=== PATIENT | female | born 1965 | race Caucasian/White ===

== ENCOUNTER 2020-05-16 19:30 | Inpatient (IN) | payer OTHER ==
[2020-05-16] MEDS ORDERED: HYDROmorphone 1 MG/ML Syringe IVPUSH ONE ×2 (19:34→22:03)
[2020-05-16] MEDS ORDERED: Ketorolac 30 MG/ML SDV IVPUSH ONE (19:34)
[2020-05-16] MEDS ORDERED: diphenhydrAMINE 50 MG/ML SDV IVPUSH ONE (19:35)
--- NOTE | 2020-05-16 19:41 | EDM.PDOC ---
ED HPI GENERAL MEDICAL PROBLEM - General Chief Complaint: Trauma Stated Complaint: RT SIDE INJURY Time Seen by Provider: 05/16/20 19:36 Source of Information: Reports: Patient History Limitations: Reports: No Limitations - History of Present Illness INITIAL COMMENTS - FREE TEXT/NARRATIVE: 55 yo female was trying to stop a lift that was rolling down a hill by putting a log under the tire when she tripped and it struck her. She has pain to the R side of her chest and says she can feel the ribs moving around on that side. Here via private vehicle. Lives in [place]. No sign of ETOH involvement. Onset: Today, Sudden Onset Date: 05/16/20 Onset Time: 18:40 Duration: Minutes: Location: Reports: Chest (R side) Quality: Reports: Sharp Severity: Severe Improves with: Reports: Rest Worsens with: Reports: Movement Context: Reports: Trauma Associated Symptoms: Reports: No Other Symptoms Treatments RESPIRATORY TECH: Reports: Other (see below) (none) Review of Systems - Review of Systems Review Of Systems: See Below Constitutional: Reports: No Symptoms Eyes: Reports: No Symptoms Ears: Reports: No Symptoms Nose: Reports: No Symptoms Mouth/Throat: Reports: No Symptoms Respiratory: Reports: Pleuritic Chest Pain (R side) Cardiovascular: Reports: No Symptoms GI/Abdominal: Reports: No Symptoms. Denies: Nausea Genitourinary: Reports: No Symptoms Musculoskeletal: Reports: No Symptoms Skin: Reports: Wound (abrasion R side of caodaism area) Neurological: Reports: No Symptoms. Denies: Headache ED EXAM, GENERAL - Physical Exam Exam: See Below Exam Limited By: No Limitations General Appearance: Alert, WD/WN, Mild Distress Eye Exam: Bilateral Eye: Normal Inspection Ears: Normal External Exam, Normal Canal, Hearing Grossly Normal, Normal TMs Ear Exam: Bilateral Ear: Auricle Normal, Canal Normal Nose: Normal Inspection, No Blood Throat/Mouth: Normal Inspection, Normal Lips, Normal Oropharynx, Normal Voice, No Airway Compromise Head: Atraumatic, Normocephalic Neck: Normal Inspection, Supple, Non-Tender Respiratory/Chest: No Respiratory Distress, Lungs Clear, Normal Breath Sounds, Other (R chest wall tender, ribs visibly move in with inspiration. Paradoxical movement.). No: Chest Non-Tender Cardiovascular: Regular Rate, Rhythm, No Edema GI/Abdominal: Normal Bowel Sounds, Soft, Non-Tender, No Distention Course - Vital Signs Text/Narrative:: Dr. Villarreal called @ Last Recorded V/S: Last Vital Signs Temp 37.1 C 05/16/20 19:43 Pulse 82 05/16/20 19:43 Resp 20 05/16/20 19:43 BP 93/52 L 05/16/20 19:43 Pulse Ox 99 05/16/20 19:43 - Orders/Labs/Meds Orders: Active Orders 24 hr Category Date Time Status Cardiac Monitoring [RC] .As Directed Care 05/16/20 19:35 Active UA W/MICROSCOPIC [URIN] Stat Lab 05/16/20 19:34 Ordered Iopamidol [Isovue-300 (61%)] Med 05/16/20 20:00 Active 100 ml IV . DIRECTED Lactated Ringers [Ringers, Lactated] 1,000 ml Med 05/16/20 19:45 Active IV ASDIRECTED Sodium Chloride 0.9% [Normal Saline] 80 ml Med 05/16/20 20:00 Active IV ASDIRECTED Medication Orders Lactated Ringer's (Ringers, Lactated) 1,000 mls @ 500 mls/hr IV ASDIRECTED MADDISON Sodium Chloride (Normal Saline) 80 mls @ 3.5 mls/sec IV ASDIRECTED MADDISON Iopamidol (Isovue-300 (61%)) 100 ml IV . DIRECTED MADDISON Labs: Laboratory Tests 05/16/20 05/16/20 Range/Units 19:42 19:42 WBC 5.8 (4.5-11.0) K/uL RBC 4.89 (3.30-5.50) M/uL Hgb 13.7 (12.0-15.0) g/dL Hct 41.8 (36.0-48.0) % MCV 86 (80-98) fL MCH 28 (27-31) pg MCHC 33 (32-36) % Plt Count 310 (150-400) K/uL Sodium 141 (140-148) mmol/L Potassium 2.8 L* (3.6-5.2) mmol/L Chloride 102 (100-108) mmol/L Carbon Dioxide 31 (21-32) mmol/L Anion Gap 10.8 (5.0-14.0) mmol/L BUN 16 (7-18) mg/dL Creatinine 0.9 (0.6-1.0) mg/dL Est Cr Clr Drug Dosing TNP Estimated GFR (MDRD) > 60 (>60) Glucose 116 H (74-106) mg/dL Calcium 8.7 (8.5-10.1) mg/dL Meds: Medications Generic Name Dose Route Start Last Admin Trade Name Freq PRN Reason Stop Dose Admin Lactated Ringer's 1,000 mls @ 500 mls/hr 05/16/20 19:45 Ringers, Lactated IV ASDIRECTED MADDISON Sodium Chloride 80 mls @ 3.5 mls/sec 05/16/20 20:00 Normal Saline IV ASDIRECTED MADDISON Iopamidol 100 ml 05/16/20 20:00 Isovue-300 (61%) IV . DIRECTED MADDISON Discontinued Medications Generic Name Dose Route Start Last Admin Trade Name Freq PRN Reason Stop Dose Admin Diphenhydramine HCl 50 mg 05/16/20 19:35 Benadryl IVPUSH 05/16/20 19:36 ONETIME ONE Hydromorphone HCl 1 mg 05/16/20 19:34 Dilaudid IVPUSH 05/16/20 19:35 ONETIME ONE Ketorolac Tromethamine 30 mg 05/16/20 19:34 Toradol IVPUSH 05/16/20 19:35 ONETIME ONE Sodium Chloride 10 ml 05/16/20 19:57 Saline Flush FLUSH 05/16/20 19:58 ONETIME ONE - Radiology Interpretation Free Text/Narrative:: CT chest/abdomen- FINDINGS: Chest: Thyroid appears normal. Aorta is non aneurysmal. No mediastinal hemorrhage. No pericardial or pleural effusion. No pathologic adenopathy. No pneumothorax. Lung parenchyma is clear other than some patchy contusion in the posterior right lower lobe associated with the mildly displaced and slightly complex posterior 9th and 10th rib fractures. Subtle 11th rib fracture without significant displacement is not contribute to contusion. Subtle acute nondisplaced anterior right 4th through 8th rib buckle fractures. No left-sided rib fractures are identified. Spine is intact. - Abdomen and pelvis: The cyst is segment 3 left liver. Couple of tiny cysts in the right liver are too small to accurately characterize. No solid visceral injury in the peritoneum or retroperitoneum. Bowel appears normal. No air or fluid in the peritoneum. Diverticula of the colon. No inflammation. No bone finding of significance. IMPRESSION: Multiple posterior and anterior right rib fractures. Minor contusion subpleural posterior right lower lobe. No pneumothorax. Please note that all CT scans at this facility use dose modulation, iterative reconstruction, and/or weight-based dosing when appropriate to reduce radiation dose to as low as reasonably achievable. Dictated by Kane Orosco MD @ May 16 2020 8:45PM (Electronic Signature) CT Results Date: 05/16/20 CT Results Time: 20:47 Departure - Departure Time of Disposition: 21:00 Disposition: Admitted As Inpatient 66 Condition: Fair Clinical Impression: Flail chest Qualifiers: Encounter type: initial encounter Fracture type: closed Qualified Code(s): S22.5XXA - Flail chest, initial encounter for closed fracture Multiple rib fractures Qualifiers: Encounter type: initial encounter Fracture type: closed Laterality: right Qualified Code(s): S22.41XA - Multiple fractures of ribs, right side, initial encounter for closed fracture - Discharge Information *PRESCRIPTION DRUG MONITORING PROGRAM REVIEWED*: No *COPY OF PRESCRIPTION DRUG MONITORING REPORT IN PATIENT JAMES: No Referrals: PCP,None [Primary Care Provider] - Forms: ED Department Discharge Sepsis Event Note (ED) - Focused Exam Vital Signs: Vital Signs Temp Pulse Resp BP Pulse Ox 05/16/20 19:43 37.1 C 82 20 93/52 L 99 - My Orders Last 24 Hours: My Active Orders 05/16/20 19:34 UA W/MICROSCOPIC [URIN] Stat 05/16/20 19:35 Cardiac Monitoring [RC] .As Directed 05/16/20 19:45 Lactated Ringers [Ringers, Lactated] 1,000 ml IV ASDIRECTED 05/16/20 20:00 Iopamidol [Isovue-300 (61%)] 100 ml IV . DIRECTED Sodium Chloride 0.9% [Normal Saline] 80 ml IV ASDIRECTED - Assessment/Plan Last 24 Hours: My Active Orders 05/16/20 19:34 UA W/MICROSCOPIC [URIN] Stat 05/16/20 19:35 Cardiac Monitoring [RC] .As Directed 05/16/20 19:45 Lactated Ringers [Ringers, Lactated] 1,000 ml IV ASDIRECTED 05/16/20 20:00 Iopamidol [Isovue-300 (61%)] 100 ml IV . DIRECTED Sodium Chloride 0.9% [Normal Saline] 80 ml IV ASDIRECTED
[2020-05-16] MEDS ORDERED: Lactated Ringers 1,000 ML IV SCH (19:45)
[2020-05-16] MEDS ORDERED: Sodium Chloride 0.9% 10 ML Syringe FLUSH ONE (19:57)
[2020-05-16] MEDS ORDERED: Sodium Chloride 0.9% 80 ML IV SCH (20:00)
[2020-05-16] MEDS ORDERED: Iopamidol 612 MG/ML 100 ML Bottle IV SCH (20:00)
--- NOTE | 2020-05-16 20:47 | CRLCT ---
INDICATION: Chest trauma. COMPARISON: None. TECHNIQUE: 100 mL Isovue-300 IV contrast. FINDINGS: Chest: Thyroid appears normal. Aorta is non aneurysmal. No mediastinal hemorrhage. No pericardial or pleural effusion. No pathologic adenopathy. No pneumothorax. Lung parenchyma is clear other than some patchy contusion in the posterior right lower lobe associated with the mildly displaced and slightly complex posterior 9th and 10th rib fractures. Subtle 11th rib fracture without significant displacement is not contribute to contusion. Subtle acute nondisplaced anterior right 4th through 8th rib buckle fractures. No left-sided rib fractures are identified. Spine is intact. - Abdomen and pelvis: The cyst is segment 3 left liver. Couple of tiny cysts in the right liver are too small to accurately characterize. No solid visceral injury in the peritoneum or retroperitoneum. Bowel appears normal. No air or fluid in the peritoneum. Diverticula of the colon. No inflammation. No bone finding of significance. IMPRESSION: Multiple posterior and anterior right rib fractures. Minor contusion subpleural posterior right lower lobe. No pneumothorax. Please note that all CT scans at this facility use dose modulation, iterative reconstruction, and/or weight-based dosing when appropriate to reduce radiation dose to as low as reasonably achievable. Dictated by Kane Orosco MD @ May 16 2020 8:45PM Signed by Dr. Kane Orosco @ May 16 2020 8:45PM
[2020-05-16] MEDS ORDERED: Scopolamine 1.5 MG Transdermal Patch TRDERM PRN (22:13)
[2020-05-16] MEDS ORDERED: diphenhydrAMINE 50 MG/ML SDV IVPUSH PRN ×2 (22:13)
[2020-05-16] MEDS ORDERED: Nicotine 21 MG/24 Hr Patch TRDERM PRN (22:13)
[2020-05-16] MEDS ORDERED: Ondansetron 4 MG/2 ML SDV IVPUSH PRN (22:13)
[2020-05-16] MEDS ORDERED: Promethazine 25 MG in Sodium Chloride 0.9% 50 ML IV PRN (22:13)
[2020-05-16] MEDS ORDERED: Promethazine 12.5 MG in Sodium Chloride 0.9% 50 ML IV PRN (22:13)
[2020-05-16] MEDS ORDERED: fentaNYL 100 MCG/2 ML SDV IVPUSH PRN ×3 (22:13)
[2020-05-16] MEDS ORDERED: Morphine 4 MG/ML Syringe IVPUSH PRN ×3 (22:13)
[2020-05-16] MEDS ORDERED: Ondansetron 4 MG Tab.DIS PO PRN (22:13)
[2020-05-16] MEDS ORDERED: diphenhydrAMINE 25 MG Cap PO PRN (22:13)
[2020-05-16] MEDS: Sodium Chloride 0.9% 1,000 ML IV SCH (23:50)
[2020-05-16] MEDS: Potassium Chloride 20 MEQ in Premix Bag 1 BAG IV SCH (23:57)
[2020-05-17] MEDS ORDERED: Potassium Chloride 20 MEQ in Premix Bag 3 BAG IV SCH (00:01)
[2020-05-17] MEDS: HYDROmorphone 0.5 MG/0.5 ML Syringe IVPUSH PRN ×5 (00:21→11:08)
[2020-05-17] MEDS: Potassium Chloride 20 MEQ in Premix Bag 1 BAG IV SCH ×2 (01:56→03:59)
--- NOTE | 2020-05-17 05:46 | CRLCR ---
Indication: Lung contusion, follow-up. Technique: Chest 2 views Comparison: Chest CT 05/16/2020 Findings/Impression: Cardiovascular and mediastinum: Heart size and vasculature are normal in caliber and appearance. Mediastinum is within normal limits. Lungs and pleural spaces: No definite pneumothorax. Mild patchy opacities lower lungs consistent with minimal atelectasis/contusion. Bones and soft tissues: Patient`s known right-sided rib fractures better seen on the recent chest CT. Dictated by Mehul Chowdary MD @ May 17 2020 5:42AM Signed by Dr. Mehul Chowdary @ May 17 2020 5:45AM
[2020-05-17] MEDS: Sodium Chloride 0.9% 1,000 ML IV SCH (07:28)
[2020-05-17] MEDS ORDERED: HYDROmorphone 1 MG/ML Syringe IV PRN (07:38)
--- NOTE | 2020-05-17 10:22 | CONS ---
DATE OF SERVICE: 05/17/2020 REFERRING PHYSICIAN: CONSULTING PHYSICIAN: Junito Villarreal MD Consult from Dr. Gerber. REASON FOR CONSULTATION: Trauma. HISTORY OF PRESENT ILLNESS: This is a 55-year-old female who had a mild crush injury in the last several hours. The patient did not drink alcohol. She is not a smoker. CT scan which showed some rib fractures and a mild lung contusion. SOCIAL HISTORY: Nonsmoker. FAMILY HISTORY: Noncontributory. REVIEW OF SYSTEMS: GENERAL: Appropriate for condition. ENT: No reported trauma. RESPIRATORY: Right-sided chest pain. CARDIOVASCULAR: No cardiac chest pain. GASTROINTESTINAL: No nausea. GENITOURINARY: No dysuria. MUSCULOSKELETAL: Some musculoskeletal pain, right side. SKIN: No specific injuries. NEUROLOGICAL: No symptoms. PHYSICAL EXAMINATION: VITAL SIGNS: Temperature 97.3, blood pressure 126/56, respirations 10, 94% on room air. GENERAL: The patient is appropriate for condition. HEENT: Pupils are equal. NECK: Supple. LUNGS: Clear except for low inspiratory effort. ABDOMEN: Nontender, nondistended. EXTREMITIES: Full range of motion. NEUROLOGICAL: Oriented x3. PSYCHIATRIC: No gross depression. IMAGING: Right-sided rib fractures. LABORATORY RESULTS: Show a normal white blood cell count and normal hemoglobin. ASSESSMENT AND PLAN: Rib fractures and lung contusion, right side. The patient can be admitted to the medicine floor. The research greenhouse supervisor informs me of a policy requiring admission to ICU. Therefore, the patient will be admitted to ICU due to the apparent policy. Anticipate discharge within the next 24 hours. Continue incentive spirometry and she may resume all her home medications. Junito Villarreal MD /[id number]
--- NOTE | 2020-05-18 08:50 | PN ---
DATE OF SERVICE: 05/17/2020 SUBJECTIVE: The patient doing very well today. She is saturating 97% on room air. No specific concerns. OBJECTIVE: VITAL SIGNS: Vital signs are stable. Temperature 97.6, blood pressure 97/56, 98% on room air. CARDIOVASCULAR: Regular rhythm and rate. RESPIRATORY: Good inspiratory effort bilaterally. No crackles or absent breath sounds. ASSESSMENT: Status post lung contusion. PLAN: Continue incentive spirometry. We will have Anesthesia see today. The patient will most likely be discharged later today, as she is saturating greater than 97% on room air and her pain is well controlled with only p.o. pain medications. If she is discharged, we discussed the importance of incentive spirometry, the signs of pneumothorax, pneumonia, and other respiratory issues. She was told she is to present to the emergency room with any shortness of breath or if she develops a cough which is continual. We also discussed avoidance of sick contacts such as COVID, etc. Junito Villarreal MD /[id number]
--- NOTE | 2020-06-08 08:52 | DISCH ---
DISCHARGE DIAGNOSIS: Status post trauma. SUMMARY OF HOSPITAL COURSE: Pleasant 55-year-old female had a minor crush injury. The patient had some rib fractures and contusions. She did well, was admitted to medicine floor, but was admitted to the ICU per a nurse. The patient did not require ICU level during this hospitalization, nor did she have any issues and subsequently discharged a few hours later. FOLLOW UP: In 7 to 14 days with me. ACTIVITY: As tolerated. DISCHARGE MEDICATIONS: Please see OCT. /[id number]
== END 2020-05-17 14:50 | disposition home or self-care (01) | DRG 184 ==
LOC: JP.ED 19:30 → JP.ICU 21:59
PROVIDERS: ADMIT Surgery; ATTEND Surgery
DX: S22.41XA Multiple fractures of ribs, right side, initial encounter for closed fracture (principal); S27.321A Contusion of lung, unilateral, initial encounter; W18.41XA Slipping, tripping and stumbling without falling due to stepping on object, initial encounter; Z20.828 Contact with and (suspected) exposure to other viral communicable diseases
CPT/HCPCS: 36415; 71046; 71260; 74177; 80048; 81001; 85025; 85027; 94762; 96361; 96374; 96375; 99284; 99285-25; A9270-GY; J1170; J1200; J1885; J2001; J3480; J7030; J7050; J7120; Q9967; U0002